=== PATIENT | female | born 1950 | race Two or more races ===

== ENCOUNTER 2017-05-05 06:58 | Inpatient (IN) | payer BC ==
[2017-05-05] VITALS (10 sets, daily range): BP systolic 109–151; BP diastolic 62–80
[~2017-05-05] VITALS: Ht 157.5 cm; Wt 74.4 kg
[2017-05-05] MEDS ORDERED: ceFAZolin sod 1 GM in NS 55 ML IVPB ONE (07:00)
--- NOTE | 2017-05-05 08:04 | Pre-Procedure Note/Attestation ---
Pre-Procedure Note/Attestation Complete Prior to Procedure Planned Procedure: not applicable Procedure Narrative: cystocele repair rectocele repair vaginal cystoscopy Indications for Procedure Pre-Operative Diagnosis: vaginal prolapce Attestation I attest that I discussed the nature of the procedure; its benefits; risks and complications; and alternatives (and the risks and benefits of such alternatives ), prior to the procedure, with the patient (or the patient's legal employment representative). I attest that, if there was a reasonable possibility of needing a blood transfusion, the patient (or the patient's legal employment representative) was given the [facility] standardized written summary, pursuant to the [place] Blood Safety Act ([place] Health and Safety Code # 1645, as amended). I attest that I re-evaluated the patient just prior to the surgery and that there has been no change in the patient's H&P, except as documented below: Reon Melvin MD May 05, 2017 08:04
[2017-05-05 08:16] LABS: BASOPHILS % (AUTO) 1.4 % (0.0-2.0); EOSINOPHILS % (AUTO) 2.7 % (0.0-3.0); LYMPHOCYTES % (AUTO) 46.8 % (20.0-45.0); MEAN CORPUSCULAR HEMOGLOBIN 29.8 PG (27.0-31.0); MEAN CORPUSCULAR HGB CONC 33.2 G/DL (32.0-36.0); MEAN CORPUSCULAR VOLUME 90 FL (80-99); MEAN PLATELET VOLUME 8.1 FL (6.5-10.1); MONOCYTES % (AUTO) 8.2 % (1.0-10.0); NEUTROPHILS % (AUTO) 40.8 % (45.0-75.0); PLATELET COUNT 210 K/UL (150-450); RED BLOOD COUNT 4.72 M/UL (4.20-5.40); RED CELL DISTRIBUTION WIDTH 11.5 % (11.6-14.8)
[2017-05-05] MEDS ORDERED: LR 1000ml 1,000 ML IVLG SCH (08:21)
--- NOTE | 2017-05-05 08:21 | Anethesia Preoperative Eval ---
Anesthesia Pre-op PMH/ROS General Date of Evaluation: May 05, 2017 Anesthesiologist: Jaspal ASA Score: ASA 2 Mallampati Score Class I : Soft palate, uvula, fauces, pillars visible Class II: Soft palate, uvula, fauces visible Class III: Soft palate, base of uvula visible Class IV: Only hard plate visible Mallampati Classification: Class II Surgeon: Ngozi Diagnosis: Urinary incontinence Surgical Procedure: Cystoscopy, cystocele,rectocele, vaginal sling Anesthesia History: none Family History: no anesthesia problems Allergies: Coded Allergies: No Known Allergies (Unverified , 05/04/17) Medications: see eMAR Past Medical History Cardiovascular: Reports: HTN, other - HLD, Denies: CAD, MO, arrhythmia, valve dz Pulmonary: Denies: COPD, SERGIO, asthma, other Gastrointestinal/Genitourinary: Reports: GERD, Denies: CRI, ESRD, other Neurologic/Psychiatric: Denies: CVA, TIA, dementia, depression/anxiety, other Endocrine: Denies: DM, hypothyroidism, other, steroids HEENT: Denies: [place] (L), [place] (R), cataract (L), cataract (R), glaucoma, other Hematology/Immune: Denies: DVT, anemia, bleeding disorder, other Musculoskeletal/Integumentary: Denies: DDD, DJD, OA, RA, edema, other PSxH Narrative: lap mireille, BEBE/BSO Anesthesia Pre-op Phys. Exam Physician Exam see chart Constitutional: NAD Cardiovascular: RRR Respiratory: CTA Airway Exam Mallampati Score: Class II MO: full ROM: full Dentures: lower, upper Anesthesia Pre-op A/P Labs Hematology Test 05/05/17 07:55 White Blood Count 6.0 K/UL (4.8-10.8) Red Blood Count 4.72 M/UL (4.20-5.40) Hemoglobin 14.1 G/DL (12.0-16.0) Hematocrit 42.3 % (37.0-47.0) Mean Corpuscular Volume 90 FL (80-99) Mean Corpuscular Hemoglobin 29.8 PG (27.0-31.0) Mean Corpuscular Hemoglobin Concent 33.2 G/DL (32.0-36.0) Red Cell Distribution Width 11.5 % (11.6-14.8) L Platelet Count 210 K/UL (150-450) Mean Platelet Volume 8.1 FL (6.5-10.1) Neutrophils (%) (Auto) 40.8 % (45.0-75.0) L Lymphocytes (%) (Auto) 46.8 % (20.0-45.0) H Monocytes (%) (Auto) 8.2 % (1.0-10.0) Eosinophils (%) (Auto) 2.7 % (0.0-3.0) Basophils (%) (Auto) 1.4 % (0.0-2.0) Studies Pre-op Studies: EKG - sr Risk Assessment & Plan Assessment: ASA II Plan: GA Status Change Before Surgery: No Pre-Antibiotics Drug: Vanco and gentamycin Given Within 1 Hr of Incision: ML Ocasio M.D. May 05, 2017 08:21
[2017-05-05] MEDS ORDERED: Hydromorphone 0.5mg/0.5ml inj IVP PRN (08:30)
[2017-05-05] MEDS ORDERED: fentaNYL 100 mcg/2 mL IV PRN (08:30)
[2017-05-05] MEDS ORDERED: DiphenhydrAMINE 50mg/ml Inj IVP PRN (08:30)
[2017-05-05] MEDS ORDERED: Metoclopramide 10mg/2ml Inj IVP PRN (08:30)
[2017-05-05] MEDS ORDERED: Ketorolac 30mg Inj IV PRN (08:30)
[2017-05-05] MEDS ORDERED: VIT E PO (08:40)
[2017-05-05] MEDS ORDERED: GLUCOSAMINE CH1 EAC3 PO (08:41)
[2017-05-05] MEDS ORDERED: HIGH POTENCY PO (08:42)
[2017-05-05] MEDS ORDERED: OMEGA 3 KRILL OIL PO (08:43)
[2017-05-05] MEDS ORDERED: IBUPROFEN600 MG ORAL (08:44)
[2017-05-05] MEDS ORDERED: Lidocaine 1% MPF 10mg/ml 5ml ONE (09:00)
[2017-05-05] MEDS ORDERED: Nimbex 2mg/ml Inj 10ML IVP ONE (09:00)
[2017-05-05] MEDS ORDERED: Ketorolac 30mg Inj ONE (09:00)
[2017-05-05] MEDS ORDERED: Sterile Water Irrig 1000ml IRRIG ONE (09:00)
[2017-05-05] MEDS ORDERED: Dexamethasone 4mg/ml vial ONE (09:00)
[2017-05-05] MEDS ORDERED: LR 1000ml ONE (09:00)
[2017-05-05] MEDS ORDERED: Midazolam 2mg/2ml Inj ONE (09:00)
[2017-05-05] MEDS ORDERED: Propofol 10mg/ml 20ml IV ONE (09:00)
[2017-05-05] MEDS ORDERED: NS Irrig 1000ml ONE (09:00)
[2017-05-05] MEDS ORDERED: fentaNYL 100 mcg/2 mL IV ONE (09:00)
[2017-05-05] MEDS ORDERED: Metoclopramide 10mg/2ml Inj ONE (09:00)
[2017-05-05] MEDS ORDERED: Vancomycin 1gm inj IVPB ONE (09:12)
[2017-05-05] MEDS ORDERED: Bupivacaine w/Epi 0.5% 30ml Vial INJ ONE (09:12)
[2017-05-05] MEDS ORDERED: Bacitracin 50000 Units Vial ONE (09:12)
[2017-05-05] MEDS ORDERED: Surgicel 4in x 8in TOPIC ONE (09:12)
[2017-05-05] MEDS ORDERED: ProvayBlue 5mg/ml 10ml amp INJ ONE (09:30)
[2017-05-05] MEDS ORDERED: Betadine 4oz Bottle TOPIC ONE (10:21)
--- NOTE | 2017-05-05 10:50 | Immediate Post-Op Evaluation ---
Immediate Post-Op Evalulation Immediate Post-Op Evalulation Procedure: Cystoscopy, cystocele vaginal sling Date of Evaluation: May 05, 2017 Time of Evaluation: 10:52 IV Fluids: 800 Blood Products: 0 Estimated Blood Loss: min Urinary Output: 0 Blood Pressure Systolic: 140 Blood Pressure Diastolic: 69 Pulse Rate: 87 Respiratory Rate: 16 O2 Sat by Pulse Oximetry: 100 Temperature (Fahrenheit): 98.2 Pain Score (1-10): 0 Nausea: No Vomiting: No Complications 0 Patient Status: awake, reacts, patent, none Hydration Status: adequate Drug: Vanco and gentamycin Given Within 1 Hr of Incision: Yes ML MUELLER M.D. May 05, 2017 10:50
--- NOTE | 2017-05-05 10:55 | Brief Operative Note ---
Immediate Post Operative Note Operative Note Pre-op Diagnosis: vaginal prolapce Procedure: cysto and rectocele repair vaginal sling cystoscopy Post-op Diagnosis: teofilo Surgeon: Evan melvin Anesthesia: general Complications: none Condition: stable Drains: none Reno Melvin MD May 05, 2017 10:55
[2017-05-05] MEDS ORDERED: Norco 5mg/325mg tab ORAL PRN (11:00)
[2017-05-05] MEDS ORDERED: HYDROmorphone 1mg/ml Carpuject IVP PRN (11:00)
[2017-05-05 11:29] LABS: BASOPHILS % (AUTO) 0.7 % (0.0-2.0); EOSINOPHILS % (AUTO) 0.8 % (0.0-3.0); LYMPHOCYTES % (AUTO) 26.7 % (20.0-45.0); MEAN CORPUSCULAR HEMOGLOBIN 29.8 PG (27.0-31.0); MEAN CORPUSCULAR HGB CONC 33.4 G/DL (32.0-36.0); MEAN CORPUSCULAR VOLUME 89 FL (80-99); MEAN PLATELET VOLUME 8.2 FL (6.5-10.1); MONOCYTES % (AUTO) 2.7 % (1.0-10.0); NEUTROPHILS % (AUTO) 69.1 % (45.0-75.0); PLATELET COUNT 201 K/UL (150-450); RED BLOOD COUNT 4.46 M/UL (4.20-5.40); RED CELL DISTRIBUTION WIDTH 11.6 % (11.6-14.8)
[2017-05-05 11:45] LABS: ANION GAP 15 (5-15); CALCIUM 9.1 mg/dL (8.6-10.2); CARBON DIOXIDE 24 mEQ/L (20-30); CHLORIDE 104 mEQ/L (98-107); CREATININE 0.6 mg/dL (0.5-0.9); GLOMERULAR FILTRATION RATE > 60 mL/min (>60); HEMOLYSIS 4; POTASSIUM 4.2 mEQ/L (3.4-4.9); SODIUM 143 mEQ/L (135-145)
--- NOTE | 2017-05-05 15:15 | History and Physical ---
History of Present Illness General Date patient seen: May 05, 2017 Present Illness HPI 67 year old female with hx of morbid obesity admitted for repair of vaginal prolapse. Allergies: Coded Allergies: No Known Allergies (Unverified , 05/04/17) Medication History Scheduled Gluc Hcl/Csa/Josselin Hy/Hyalur Ac (Glucosamine Chondroitin Cap), 1 EACH PO DAILY, ( Reported) Ibuprofen* (Motrin*), 800 MG ORAL PRN, (Reported) [High Potency B12], 3,000 MCG PO DAILY, (Reported) [[place] 3 Krill Oil], 350 MG PO DAILY, (Reported) [Vit E], 400 INTLU PO DAILY, (Reported) Patient History Healthcare decision maker N Resuscitation status Full Code Advanced Directive on File Past Medical/Surgical History Past Medical/Surgical History: (1) Morbid obesity Review of Systems All Other Systems: negative except mentioned in HPI Physical Exam General Appearance: WD/WN, no apparent distress Lines, tubes and drains: peripheral, central line HEENT: normocephalic, atraumatic Respiratory/Chest: chest wall non-tender, lungs clear Cardiovascular/Chest: normal peripheral pulses, normal rate Abdomen: normal bowel sounds Last 24 Hour Vital Signs Date Time Temp Pulse Resp B/P Pulse Ox O2 Delivery O2 Flow Rate FiO2 05/05/17 12:05 97.9 85 18 134/71 100 Nasal Cannula 3.0 05/05/17 11:30 98.0 82 20 144/75 100 Nasal Cannula 3.0 05/05/17 11:21 84 20 141/73 100 Nasal Cannula 3.0 05/05/17 11:07 84 20 140/71 100 Nasal Cannula 3.0 05/05/17 10:57 89 20 133/68 100 Simple Mask 8.0 05/05/17 10:52 89 20 128/62 100 Simple Mask 8.0 05/05/17 10:50 87 16 100 05/05/17 10:47 98.2 88 20 140/69 100 Simple Mask 8.0 05/05/17 08:24 97.0 72 18 151/80 99 Room Air Laboratory Tests Test 05/05/17 07:55 05/05/17 11:20 White Blood Count 6.0 K/UL (4.8-10.8) 7.0 K/UL (4.8-10.8) Red Blood Count 4.72 M/UL (4.20-5.40) 4.46 M/UL (4.20-5.40) Hemoglobin 14.1 G/DL (12.0-16.0) 13.3 G/DL (12.0-16.0) Hematocrit 42.3 % (37.0-47.0) 39.9 % (37.0-47.0) Mean Corpuscular Volume 90 FL (80-99) 89 FL (80-99) Mean Corpuscular Hemoglobin 29.8 PG (27.0-31.0) 29.8 PG (27.0-31.0) Mean Corpuscular Hemoglobin Concent 33.2 G/DL (32.0-36.0) 33.4 G/DL (32.0-36.0) Red Cell Distribution Width 11.5 % (11.6-14.8) L 11.6 % (11.6-14.8) Platelet Count 210 K/UL (150-450) 201 K/UL (150-450) Mean Platelet Volume 8.1 FL (6.5-10.1) 8.2 FL (6.5-10.1) Neutrophils (%) (Auto) 40.8 % (45.0-75.0) L 69.1 % (45.0-75.0) Lymphocytes (%) (Auto) 46.8 % (20.0-45.0) H 26.7 % (20.0-45.0) Monocytes (%) (Auto) 8.2 % (1.0-10.0) 2.7 % (1.0-10.0) Eosinophils (%) (Auto) 2.7 % (0.0-3.0) 0.8 % (0.0-3.0) Basophils (%) (Auto) 1.4 % (0.0-2.0) 0.7 % (0.0-2.0) Sodium Level 143 mEQ/L (135-145) Potassium Level 4.2 mEQ/L (3.4-4.9) Chloride Level 104 mEQ/L (98-107) Carbon Dioxide Level 24 mEQ/L (20-30) Anion Gap 15 (5-15) Blood Urea Nitrogen 14 mg/dL (7-23) Creatinine 0.6 mg/dL (0.5-0.9) Estimat Glomerular Filtration Rate > 60 mL/min (>60) Glucose Level 126 mg/dL (74-106) H Calcium Level 9.1 mg/dL (8.6-10.2) Height (Feet): 5 Height (Inches): 2.00 Weight (Pounds): 164 Medications Current Medications Medications (Trade) Dose Ordered Sig/Magno Route PRN Reason Start Time Stop Time Status Last Admin Dose Admin Acetaminophen (Tylenol) 650 mg Q4H PRN ORAL Mild Pain (Pain Scale 1-3) 05/05/17 08:30 05/05/17 16:00 Acetaminophen (Tylenol) 650 mg Q4H PRN ORAL FEVER 05/05/17 11:00 06/04/17 10:59 Acetaminophen (Tylenol) 650 mg Q6H PRN ORAL Mild Pain (Pain Scale 1-3) 05/05/17 11:00 06/04/17 10:59 Acetaminophen/ Hydrocodone Bitart 1 tab 1 tab Q4H PRN ORAL Moderate Pain (Pain Scale 4-6) 05/05/17 11:00 05/12/17 10:59 Cefazolin Sodium/ Dextrose (Ancef/D5W) 110 ml @ 220 mls/hr Q8H IV 05/05/17 17:00 05/06/17 01:29 Dextrose/ Electrolytes (D5 0.45%NS W/ KCl 20mEq) 1,000 ml @ 100 mls/hr Q10H IV 05/05/17 15:00 06/04/17 14:59 Diphenhydramine HCl 25 mg 25 mg Q15M PRN IVP Itching 05/05/17 08:30 05/05/17 16:00 Docusate Sodium (Colace) 100 mg TWICE A DAY ORAL 05/05/17 18:00 06/04/17 17:59 Fentanyl Citrate (Sublimaze 100 mcg/2 mL) 25 mcg Q10M PRN IV Moderate Pain (Pain Scale 4-6) 05/05/17 08:30 05/05/17 17:00 Hydralazine HCl (Apresoline) 5 mg Q30M PRN IV SBP>160 OR___/DBP>90 OR___ 05/05/17 08:30 05/05/17 16:00 Hydromorphone HCl (Dilaudid) 0.5 mg Q15M PRN IVP Severe Pain (Pain Scale 7-10) 05/05/17 08:30 05/05/17 16:00 Hydromorphone HCl (Dilaudid) 1 mg Q3H PRN IVP Severe Pain (Pain Scale 7-10) 05/05/17 11:00 05/12/17 10:59 Metoclopramide HCl (Reglan) 10 mg Q1H PRN IVP Nausea & Vomiting 05/05/17 08:30 05/05/17 16:00 Ondansetron HCl (Zofran) 4 mg Q1H PRN IVP Nausea & Vomiting 05/05/17 08:30 05/05/17 16:00 Ondansetron HCl (Zofran) 4 mg Q6H PRN IVP Nausea & Vomiting 05/05/17 11:00 06/04/17 10:59 Assessment/Plan Problem List: (1) Vaginal prolapse ICD Codes: N81.10 - Cystocele, unspecified SNOMED: [id number] Assessment/Plan Transvaginal cystocele repair. Rectocele repair. EMY ZHAO May 05, 2017 15:15
[2017-05-05] MEDS: D5 1/2NS w/KCl 20mEq 1,000 ML IV SCH (15:33)
[2017-05-05] MEDS: ceFAZolin sod 2 GM in D5W 110 ML IV SCH (17:18)
[2017-05-05] MEDS: Docusate 100mg cap ORAL SCH (17:18)
--- NOTE | 2017-05-05 17:50 | Cardiology Report ---
APPROVED REPORT EKG Measurement Heart [id number] Normal sinus rhythm Normal ECG
[2017-05-06] MEDS: D5 1/2NS w/KCl 20mEq 1,000 ML IV SCH (01:08)
[2017-05-06] MEDS: ceFAZolin sod 2 GM in D5W 110 ML IV SCH (01:08)
[2017-05-06 04:00] VITALS: BP 111/56
[2017-05-06 06:24] LABS: BASOPHILS % (AUTO) 0.2 % (0.0-2.0); LYMPHOCYTES % (AUTO) 19.8 % (20.0-45.0); MEAN CORPUSCULAR HEMOGLOBIN 30.2 PG (27.0-31.0); MEAN CORPUSCULAR HGB CONC 33.5 G/DL (32.0-36.0); MEAN CORPUSCULAR VOLUME 90 FL (80-99); MEAN PLATELET VOLUME 7.4 FL (6.5-10.1); MONOCYTES % (AUTO) 8.8 % (1.0-10.0); NEUTROPHILS % (AUTO) 71.2 % (45.0-75.0); PLATELET COUNT 197 K/UL (150-450); RED BLOOD COUNT 3.86 M/UL (4.20-5.40); RED CELL DISTRIBUTION WIDTH 11.6 % (11.6-14.8); WHITE BLOOD COUNT 10.3 K/UL (4.8-10.8)
[2017-05-06 07:01] LABS: ANION GAP 15 (5-15); CALCIUM 8.9 mg/dL (8.6-10.2); CARBON DIOXIDE 24 mEQ/L (20-30); CHLORIDE 102 mEQ/L (98-107); CREATININE 0.6 mg/dL (0.5-0.9); GLOMERULAR FILTRATION RATE > 60 mL/min (>60); HEMOLYSIS 3; POTASSIUM 4.1 mEQ/L (3.4-4.9); SODIUM 141 mEQ/L (135-145)
[2017-05-06 08:00] VITALS: BP 125/64
[2017-05-06] MEDS: Docusate 100mg cap ORAL SCH ×2 (08:41→17:22)
--- NOTE | 2017-05-06 10:03 | General Progress Note ---
Assessment/Plan Status: stable Status Narrative Day 1 after vaginal reconstruction Assessment/Plan Advance diet CBC in AM Will keep the Marquez till tomorrow morning Subjective Constitutional: Reports: weakness Gastrointestinal/Abdominal: Reports: no symptoms Genitourinary: Reports: burning Allergies: Coded Allergies: No Known Allergies (Unverified , 05/04/17) Objective Last 24 Hour Vital Signs Date Time Temp Pulse Resp B/P Pulse Ox O2 Delivery O2 Flow Rate FiO2 05/06/17 08:00 97.7 69 20 125/64 97 Room Air 05/06/17 04:00 97.5 68 18 111/56 96 Room Air 05/06/17 00:00 98.1 77 18 97 Nasal Cannula 1.0 05/05/17 20:00 97.7 84 16 122/74 95 Room Air 05/05/17 16:00 97.5 81 17 109/66 98 Room Air 05/05/17 12:05 97.9 85 18 134/71 100 Nasal Cannula 3.0 05/05/17 11:30 98.0 82 20 144/75 100 Nasal Cannula 3.0 05/05/17 11:21 84 20 141/73 100 Nasal Cannula 3.0 05/05/17 11:07 84 20 140/71 100 Nasal Cannula 3.0 05/05/17 10:57 89 20 133/68 100 Simple Mask 8.0 05/05/17 10:52 89 20 128/62 100 Simple Mask 8.0 05/05/17 10:50 87 16 100 05/05/17 10:47 98.2 88 20 140/69 100 Simple Mask 8.0 Intake and Output 05/05/17 05/06/17 19:00 07:00 Intake Total 1200 ml 240 ml Output Total 1200 ml 1250 ml Balance 0 ml -1010 ml Intake Oral 200 ml 240 ml IV Total 1000 ml Output Urine Total 1200 ml 1250 ml # Voids 1 Laboratory Tests 05/05/17 11:20: White Blood Count 7.0, Red Blood Count 4.46, Hemoglobin 13.3, Hematocrit 39.9, Mean Corpuscular Volume 89, Mean Corpuscular Hemoglobin 29.8, Mean Corpuscular Hemoglobin Concent 33.4, Red Cell Distribution Width 11.6, Platelet Count 201, Mean Platelet Volume 8.2, Neutrophils (%) (Auto) 69.1, Lymphocytes (%) (Auto) 26.7, Monocytes (%) (Auto) 2.7, Eosinophils (%) (Auto) 0.8, Basophils (%) (Auto ) 0.7, Sodium Level 143, Potassium Level 4.2, Chloride Level 104, Carbon Dioxide Level 24, Anion Gap 15, Blood Urea Nitrogen 14, Creatinine 0.6, Estimat Glomerular Filtration Rate > 60, Glucose Level 126H, Calcium Level 9.1 05/06/17 05:00: White Blood Count 10.3, Red Blood Count 3.86L, Hemoglobin 11.7L, Hematocrit 34.9L, Mean Corpuscular Volume 90, Mean Corpuscular Hemoglobin 30.2, Mean Corpuscular Hemoglobin Concent 33.5, Red Cell Distribution Width 11.6, Platelet Count 197, Mean Platelet Volume 7.4, Neutrophils (%) (Auto) 71.2, Lymphocytes (% ) (Auto) 19.8L, Monocytes (%) (Auto) 8.8, Eosinophils (%) (Auto) 0.0, Basophils (%) (Auto) 0.2, Sodium Level 141, Potassium Level 4.1, Chloride Level 102, Carbon Dioxide Level 24, Anion Gap 15, Blood Urea Nitrogen 11, Creatinine 0.6, Estimat Glomerular Filtration Rate > 60, Glucose Level 146H, Calcium Level 8.9 Height (Feet): 5 Height (Inches): 2.00 Weight (Pounds): 164 Abdomen: non tender, soft Pelvis: no active bleeding Reno Melvin MD May 06, 2017 10:02
[2017-05-06 12:00] VITALS: BP 127/68
--- NOTE | 2017-05-06 12:12 | 48 Hour Post Anesthesia Eval ---
Post Anesthesia Evaluation Procedure: Cystoscopy, cystocele vaginal sling Date of Evaluation: May 06, 2017 Time of Evaluation: 12:09 Blood Pressure Systolic: 132 0: 54 Pulse Rate: 73 Respiratory Rate: 20 Temperature (Fahrenheit): 97.6 O2 Sat by Pulse Oximetry: 98 Airway: patent Nausea: No Vomiting: No Pain Intensity: 3 Hydration Status: adequate Cardiopulmonary Status: stable Mental Status/LOC: patient returned to baseline Follow-up Care/Observations: n/a Post-Anesthesia Complications: none Follow-up care needed: N/A ASHA GAVIN M.D. May 06, 2017 12:12
[2017-05-06] MEDS ORDERED: Tubing IV Secondary IV ONE (12:34)
--- NOTE | 2017-05-06 16:32 | Pulmonology Progress Note ---
Assessment/Plan Problems: (1) Vaginal prolapse (2) Morbid obesity Assessment/Plan 1. Transvaginal cystocele repair. 2. Rectocele repair. 3. Vaginal wall sling. 4. Cystoscopy. Subjective ROS Limited/Unobtainable: No Constitutional: Reports: no symptoms HEENT: Repors: no symptoms Respiratory: Reports: no symptoms Allergies: Coded Allergies: No Known Allergies (Unverified , 05/04/17) Objective Last 24 Hour Vital Signs Date Time Temp Pulse Resp B/P Pulse Ox O2 Delivery O2 Flow Rate FiO2 05/06/17 12:12 73 20 98 05/06/17 12:00 98.0 74 20 127/68 95 Room Air 05/06/17 11:17 97.7 05/06/17 08:00 97.7 69 20 125/64 97 Room Air 05/06/17 04:00 97.5 68 18 111/56 96 Room Air 05/06/17 00:00 98.1 77 18 97 Nasal Cannula 1.0 05/05/17 20:00 97.7 84 16 122/74 95 Room Air Intake and Output 05/05/17 05/06/17 19:00 07:00 Intake Total 1200 ml 240 ml Output Total 1200 ml 1250 ml Balance 0 ml -1010 ml Intake Oral 200 ml 240 ml IV Total 1000 ml Output Urine Total 1200 ml 1250 ml # Voids 1 General Appearance: WD/WN HEENT: normocephalic Respiratory/Chest: chest wall non-tender, lungs clear Breasts: no masses Cardiovascular: normal peripheral pulses Abdomen: normal bowel sounds, soft, non tender Laboratory Tests 05/06/17 05:00: White Blood Count 10.3, Red Blood Count 3.86L, Hemoglobin 11.7L, Hematocrit 34.9L, Mean Corpuscular Volume 90, Mean Corpuscular Hemoglobin 30.2, Mean Corpuscular Hemoglobin Concent 33.5, Red Cell Distribution Width 11.6, Platelet Count 197, Mean Platelet Volume 7.4, Neutrophils (%) (Auto) 71.2, Lymphocytes (% ) (Auto) 19.8L, Monocytes (%) (Auto) 8.8, Eosinophils (%) (Auto) 0.0, Basophils (%) (Auto) 0.2, Sodium Level 141, Potassium Level 4.1, Chloride Level 102, Carbon Dioxide Level 24, Anion Gap 15, Blood Urea Nitrogen 11, Creatinine 0.6, Estimat Glomerular Filtration Rate > 60, Glucose Level 146H, Calcium Level 8.9 Current Medications Medications (Trade) Dose Ordered Sig/Magno Route PRN Reason Start Time Stop Time Status Last Admin Dose Admin Acetaminophen (Tylenol) 650 mg Q4H PRN ORAL FEVER 05/05/17 11:00 06/04/17 10:59 Acetaminophen (Tylenol) 650 mg Q6H PRN ORAL Mild Pain (Pain Scale 1-3) 05/05/17 11:00 06/04/17 10:59 Acetaminophen/ Hydrocodone Bitart ([place] 5/325) 1 tab Q4H PRN ORAL Moderate Pain (Pain Scale 4-6) 05/05/17 11:00 05/12/17 10:59 05/06/17 10:18 Docusate Sodium (Colace) 100 mg TWICE A DAY ORAL 05/05/17 18:00 06/04/17 17:59 05/06/17 08:41 Hydromorphone HCl (Dilaudid) 1 mg Q3H PRN IVP Severe Pain (Pain Scale 7-10) 05/05/17 11:00 05/12/17 10:59 Ondansetron HCl (Zofran) 4 mg Q6H PRN IVP Nausea & Vomiting 05/05/17 11:00 06/04/17 10:59 EMY ZHAO May 06, 2017 16:32
[2017-05-06 18:06] VITALS: BP 106/50
--- NOTE | 2017-05-06 23:00 | Operative Note - Dictated ---
DATE OF OPERATION: 05/05/2017 PREOPERATIVE DIAGNOSIS: Vaginal prolapse. POSTOPERATIVE DIAGNOSIS: Vaginal prolapse. OPERATION: 1. Transvaginal cystocele repair. 2. Rectocele repair. 3. Vaginal wall sling. 4. Cystoscopy. SURGEON: Reno Melvin M.D. ANESTHESIA: General. FINDINGS: Severe prolapse of the vagina increased grade 4 cystocele and rectocele. Treatment options were explained today in great length including all potential complications. She signed a consent. DESCRIPTION OF PROCEDURE: She was brought to the operative room and placed in lithotomy position. Prepped and draped in a standard fashion. Under general anesthesia, a Randall retractor was placed and dissection started at the anterior vagina bladder from the vaginal wall. After the bladder was completely dissected from the surrounding adhesions and pushed cephalad using [employer] device, sutures were placed in the sacrospinal ligament and formal colposuspension was performed by attaching the mesh to the bottom of the vaginal wall and securing it to the sacrospinal ligament. Excellent vaginal wall suspension was accomplished. After that, medial arc sling was placed in the midurethra and left indwelling. After reconstructing the anterior vagina, posterior vagina was reconstructed with interrupted [id number] 2-0 Vicryl sutures reducing the rectocele. Good vaginal depth was accomplished. Cystoscopy showed ejection of methylene blue from both ureteral orifices and no evidence of bladder perforation. Vagina was trimmed and closed with running 2-0 Vicryl suture. The vagina was packed and a Marquez catheter was left indwelling. The patient received 2 g of Ancef preoperatively. Estimated blood loss was approximately 100 mL. She tolerated the procedure well. Sponge count and instrument count was correct. Reno Melvin M.D. DR: HERNAN JOB#: [id number] CC:
[2017-05-07] VITALS: BP 104/63
[2017-05-07 04:00] VITALS: BP 123/68
[2017-05-07 06:54] LABS: ALANINE AMINOTRANSFERASE 16 U/L (3-33); ALBUMIN/GLOBULIN RATIO 1.2 (1.0-2.7); ANION GAP 11 (5-15); ASPARTATE AMINO TRANSFERASE 17 U/L (5-40); CALCIUM 8.9 mg/dL (8.6-10.2); CARBON DIOXIDE 28 mEQ/L (20-30); CHLORIDE 103 mEQ/L (98-107); CREATININE 0.6 mg/dL (0.5-0.9); GLOMERULAR FILTRATION RATE > 60 mL/min (>60); HEMOLYSIS 2; MAGNESIUM 1.8 mg/dL (1.7-2.5); PHOSPHORUS 3.3 mg/dL (2.5-4.8); SODIUM 142 mEQ/L (135-145); TOTAL PROTEIN 6.2 g/dL (6.6-8.7)
[2017-05-07 06:59] LABS: BASOPHILS % (AUTO) 0.6 % (0.0-2.0); LYMPHOCYTES % (AUTO) 43.5 % (20.0-45.0); MEAN CORPUSCULAR HEMOGLOBIN 30.6 PG (27.0-31.0); MEAN CORPUSCULAR HGB CONC 34.1 G/DL (32.0-36.0); MEAN CORPUSCULAR VOLUME 90 FL (80-99); MONOCYTES % (AUTO) 8.2 % (1.0-10.0); NEUTROPHILS % (AUTO) 46.7 % (45.0-75.0); PLATELET COUNT 174 K/UL (150-450); RED BLOOD COUNT 3.64 M/UL (4.20-5.40); RED CELL DISTRIBUTION WIDTH 11.8 % (11.6-14.8)
[2017-05-07 07:58] VITALS: BP 118/70
[2017-05-07] MEDS: Docusate 100mg cap ORAL SCH (07:58)
[2017-05-07] MEDS ORDERED: Miralax 17gm pkt ORAL PRN (10:00)
[2017-05-07 12:00] VITALS: BP 115/63
--- NOTE | 2017-05-07 14:25 | Pulmonology Progress Note ---
Assessment/Plan Problems: (1) Vaginal prolapse (2) Morbid obesity Assessment/Plan s/ptTransvaginal cystocele repair. Rectocele repair. Vaginal wall sling, Cystoscopy. symptomatic treatment. dc home with f/u with urologist Subjective ROS Limited/Unobtainable: No Constitutional: Reports: no symptoms HEENT: Repors: no symptoms Respiratory: Reports: no symptoms Allergies: Coded Allergies: No Known Allergies (Unverified , 05/04/17) Objective Last 24 Hour Vital Signs Date Time Temp Pulse Resp B/P Pulse Ox O2 Delivery O2 Flow Rate FiO2 05/07/17 12:00 98.2 74 20 115/63 98 Nasal Cannula 05/07/17 07:58 97.9 66 19 118/70 97 Room Air 05/07/17 04:00 97.9 69 16 123/68 97 Room Air 05/07/17 00:00 97.9 73 16 104/63 98 Room Air 05/06/17 18:06 97.7 65 20 106/50 98 Room Air Intake and Output 05/06/17 05/07/17 19:00 07:00 Intake Total 1320 ml Output Total 1850 ml 675 ml Balance -530 ml -675 ml Intake Oral 1320 ml Output Urine Total 1850 ml 675 ml General Appearance: WD/WN HEENT: normocephalic, anicteric Respiratory/Chest: chest wall non-tender, lungs clear Breasts: no masses Cardiovascular: normal peripheral pulses, normal rate Abdomen: normal bowel sounds, soft, non tender Extremities: no cyanosis, no clubbing Neurologic/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 Complete Laboratory Tests 05/07/17 05:35: White Blood Count 9.0, Red Blood Count 3.64L, Hemoglobin 11.2L, Hematocrit 32.7L , Mean Corpuscular Volume 90, Mean Corpuscular Hemoglobin 30.6, Mean Corpuscular Hemoglobin Concent 34.1, Red Cell Distribution Width 11.8, Platelet Count 174, Mean Platelet Volume 8.0, Neutrophils (%) (Auto) 46.7, Lymphocytes (% ) (Auto) 43.5, Monocytes (%) (Auto) 8.2, Eosinophils (%) (Auto) 1.0, Basophils ( %) (Auto) 0.6, Erythrocyte Sedimentation Rate 32H, Sodium Level 142, Potassium Level 4.0, Chloride Level 103, Carbon Dioxide Level 28, Anion Gap 11, Blood Urea Nitrogen 12, Creatinine 0.6, Estimat Glomerular Filtration Rate > 60, Glucose Level 92, Calcium Level 8.9, Phosphorus Level 3.3, Magnesium Level 1.8, Total Bilirubin 0.3, Aspartate Amino Transf (AST/SGOT) 17, Alanine Aminotransferase (ALT/SGPT) 16, Alkaline Phosphatase 78, C-Reactive Protein, Quantitative 1.0H, Total Protein 6.2L, Albumin 3.5, Globulin 2.7, Albumin/ Globulin Ratio 1.2 Current Medications Medications (Trade) Dose Ordered Sig/Magno Route PRN Reason Start Time Stop Time Status Last Admin Dose Admin Acetaminophen (Tylenol) 650 mg Q4H PRN ORAL FEVER 05/05/17 11:00 06/04/17 10:59 Acetaminophen (Tylenol) 650 mg Q6H PRN ORAL Mild Pain (Pain Scale 1-3) 05/05/17 11:00 06/04/17 10:59 Acetaminophen/ Hydrocodone Bitart ([place] 5/325) 1 tab Q4H PRN ORAL Moderate Pain (Pain Scale 4-6) 05/05/17 11:00 05/12/17 10:59 05/06/17 10:18 Docusate Sodium (Colace) 100 mg TWICE A DAY ORAL 05/05/17 18:00 06/04/17 17:59 05/07/17 07:58 Hydromorphone HCl (Dilaudid) 1 mg Q3H PRN IVP Severe Pain (Pain Scale 7-10) 05/05/17 11:00 05/12/17 10:59 05/06/17 19:53 Ondansetron HCl (Zofran) 4 mg Q6H PRN IVP Nausea & Vomiting 05/05/17 11:00 06/04/17 10:59 Polyethylene Glycol (Miralax) 17 gm DAILYPRN PRN ORAL Constipation 05/07/17 10:00 06/06/17 09:59 EMY ZHAO May 07, 2017 14:25
--- NOTE | 2017-05-10 09:04 | Discharge Summary ---
Discharge Summary Hospital Course Date of Admission May 05, 2017 at 06:58 Date of Discharge May 07, 2017 at 16:17 Admitting Diagnosis vaginal prolapse Reason for Hospitalization: elective surgery for vaginal prolapse ROYCE Contreras is a 67 year old female who was admitted on May 05, 2017 at 06 :58 for Cystocele,Incontinent Consultations dr Syed IM Procedures 05/05/17/dr Melvin 1. Transvaginal cystocele repair. 2. Rectocele repair. 3. Vaginal wall sling. 4. Cystoscopy. Hospital Course s/p surgery course of recovery uneventful IVF initially urine cleared pain management, controlled diet advanced, able to tolerate ambulated afebrile keep Marquez as per surgeon, leg bag upon discharge instructed by nursing how to use fup with surgeon on Wednesday scripts provided DISCHARGE DIAGNOSES vaginal prolapse s/p cystoscopy with transvaginal cystocele and rectocele repair, placement of vaginal sling obesity Discharge Medications Continued Medications: Gluc Hcl/Csa/Josselin Hy/Hyalur Ac (Glucosamine Chondroitin Cap) 1 Each Capsule 1 EACH PO DAILY, CAP [High Potency B12] () 3000 MCG PO DAILY [[place] 3 Krill Oil] () 350 MG PO DAILY [Vit E] () 400 INTLU PO DAILY Discontinued Medications: Ibuprofen* (Motrin*) 600 Mg Tablet 800 MG ORAL PRN, #30 TAB 0 Refills Discharge Condition Upon Discharge: stable Discharge Disposition Patient was discharged to Home () Discharge Diagnoses: Discharge Instructions Discharge Instructions Special Instructions I have been assigned to complete a D/C Summary on this account. I was not involved in the patient management Maribel Alejandra NP (Vanchte[place]) May 10, 2017 09:04
== END 2017-05-07 16:17 | disposition home or self-care (01) | DRG 748 ==
LOC: SDSOVERFLO 06:58 → 3E 12:41
PROC: 0JUC0JZ Supplement of Pelvic Region Subcutaneous Tissue and Fascia with Synthetic Substitute, Open Approach (ICD-10-PCS; principal; 2017-05-05 09:30)
PROC: 0USG0ZZ Reposition Vagina, Open Approach (ICD-10-PCS; principal; 2017-05-05 09:30)
PROC: 0JQC0ZZ Repair Pelvic Region Subcutaneous Tissue and Fascia, Open Approach (ICD-10-PCS; principal; 2017-05-05 09:30)
DX: N81.10 Cystocele, unspecified (principal); E66.01 Morbid (severe) obesity due to excess calories; N81.6 Rectocele
CPT/HCPCS: 36415; 80048; 80053; 83735; 84100; 85025; 85651; 86140; 87081; 93005; 94003; 94150; A4246; J2250; J2405; J2765